=== PATIENT | female | born 1930 | race Caucasian/White ===

== ENCOUNTER 2019-03-28 20:36 | Emergency (ER) | payer MEDICARE ==
[~2019-03-28] VITALS: Ht 149.9 cm; Wt 64.5 kg
[2019-03-28 20:40] VITALS: BP 137/60
[2019-03-28] MEDS ORDERED: acetaminophen 325mg tablet PO ONE (20:45)
== END 2019-03-28 21:49 | disposition home or self-care (01) ==
LOC: ER 20:37
DX: S90.32XA Contusion of left foot, initial encounter (principal); S90.122A Contusion of left lesser toe(s) without damage to nail, initial encounter; I10 Essential (primary) hypertension; J44.9 Chronic obstructive pulmonary disease, unspecified; E03.9 Hypothyroidism, unspecified; E11.42 Type 2 diabetes mellitus with diabetic polyneuropathy; Z88.8 Allergy status to other drugs, medicaments and biological substances; W22.03XA Walked into furniture, initial encounter; Y93.89 Activity, other specified; Y92.89 Other specified places as the place of occurrence of the external cause; Y99.9 Unspecified external cause status
CPT/HCPCS: 73630; 99284

== ENCOUNTER 2021-11-03 01:07 | Inpatient (IN) | payer MEDICARE, OTHER ==
[~2021-11-03] VITALS: Ht 162.6 cm; Wt 54.5 kg
[2021-11-03] MEDS ORDERED: iohexol 300mg/ml 100ml inj. ONE (01:48)
[2021-11-03 02:23] LABS: CLARITY,URINE SLIGHTLY CLOUDY (Clear); COLOR,URINE YELLOW (Yellow); GLUCOSE, URINE NEGATIVE (Neg); KETONES,URINE NEGATIVE (Neg); LEUKOCYTE ESTERASE ,URINE NEGATIVE (Neg); NITRITES, URINE NEGATIVE (Neg); OCCULT BLOOD,URINE LARGE (Neg); PROTEIN,URINE 30 mg/dl (Neg); UROBILINOGEN,URINE 0.2 E.U/dL (0.2-1.0)
[2021-11-03 02:28] LABS: APTT 28 SECONDS (22-32)
[2021-11-03 02:29] LABS: ALANINE AMINOTRANSFERASE 12 U/L (12-78); ALBUMIN 2.3 G/DL (3.4-5.0); ALBUMIN/GLOBULIN RATIO 0.6 (1.1-1.5); ALKALINE PHOSPHATASE 81 IU/L (46-116); ANION GAP 9 (8-16); ASPARTATE AMINO TRANSFERASE 8 U/L (10-37); BILIRUBIN,DIRECT 0.1 MG/DL (0-0.3); BILIRUBIN,TOTAL 0.3 MG/DL (0.1-1.0); BLOOD UREA NITROGEN 54 MG/DL (7-18); BUN/CREATININE RATIO 27.7 (6.6-38.0); CALCIUM 9.1 MG/DL (8.5-10.1); CHLORIDE 98 MMOL/L (99-107); CREATININE 1.95 MG/DL (0.40-0.90); GLUCOSE 139 MG/DL (70-104); LIPASE 143 U/L (73-393); SODIUM 130 MMOL/L (135-145); TOTAL CARBON DIOXIDE 22.6 MMOL/L (24-32); TOTAL PROTEIN 6.4 G/DL (6.4-8.2); eGFR 24 ML/MIN
[2021-11-03 02:35] LABS: POTASSIUM 6.5 MMOL/L (3.5-5.1)
[2021-11-03 02:39] LABS: UA COLLECTION TYPE STRAIGHT CATH
[2021-11-03] MEDS ORDERED: albuterol 2.5 MG/3 ML nebule CONTNEB PRN (02:40)
[2021-11-03] MEDS ORDERED: dextrose ORAL solution 15 GM/59 ML bottle PO ONE (02:40)
[2021-11-03] MEDS ORDERED: insulin regular, human 10 units/0.1 ml syringe IV ONE ×2 (02:40→04:35)
[2021-11-03 02:41] LABS: BACTERIA,URINE FEW /HPF (Neg); SQUAMOUS EPITHELIAL CELL,UR FEW /LPF (FEW)
[2021-11-03 02:42] LABS: RBC,URINE 50-100 /HPF (0-2); WBC,URINE 0-4 /HPF (0-4)
[2021-11-03 02:44] LABS: FINE GRANULAR CAST 0-3 /LPF (NEGATIVE)
[2021-11-03] MEDS ORDERED: calcium gluconate inj. 1 GM in normal saline 100ml IV soln 100 ML IV ONE (02:45)
[2021-11-03] MEDS ORDERED: CALCIUM GLUC 1gm/50ml NACL,iso 50 ML IV ONE (02:45)
[2021-11-03] MEDS ORDERED: normal saline 1000ml 1,000 ML IV ONE (03:10)
[2021-11-03 03:14] LABS: BASOPHILS % (AUTO) 0.3 % (0-1); EOSINOPHILS % (AUTO) 0.3 % (0-6); HEMATOCRIT 29.8 % (35.0-45.0); HEMOGLOBIN 9.6 g/dl (12.0-16.0); LYMPHOCYTES # (AUTO) 0.2 X10'3 (1.1-4.8); LYMPHOCYTES % (AUTO) 2.3 % (21-51); MEAN CORPUSCULAR HEMOGLOBIN 32.1 PG (27.0-31.0); MEAN CORPUSCULAR HGB CONC 32.2 g/dL (33.0-36.5); MEAN CORPUSCULAR VOLUME 99.7 FL (78-98); MONOCYTES # (AUTO) 0.5 X10'3 (0-0.9); MONOCYTES % (AUTO) 7.1 % (2-12); NEUTROPHILS # (AUTO) 6.7 X10'3 (1.8-7.7); PLATELET COUNT 547 X10'3 (140-440); RED BLOOD COUNT 2.99 X10'6 (4.20-5.60); RED CELL DISTRIBUTION WIDTH 14.5 % (11.5-14.5); WHITE BLOOD COUNT 7.4 X10'3 (4.5-11.0)
[2021-11-03] MEDS ORDERED: HYDROcodone/acetaminophen 5mg/325mg tablet PO PRN (04:30)
[2021-11-03] MEDS ORDERED: morphine 2 MG/ML inj. syringe IV PRN (04:30)
[2021-11-03] MEDS ORDERED: bisacodyl 10mg suppository rectal RC PRN (04:30)
[2021-11-03] MEDS ORDERED: mag hydrox/Alum hydrox/simeth 30ml oral suspension PO PRN (04:30)
[2021-11-03] MEDS ORDERED: ondansetron/PF 4mg/2ml inj IV PRN (04:30)
[2021-11-03] MEDS ORDERED: HYDROmorphone inj. 0.5 MG/0.5 ML DISP.SYRIN IV PRN (04:30)
[2021-11-03] MEDS ORDERED: magnesium hydroxide 30ml (MOM) UD suspension PO PRN (04:30)
[2021-11-03] MEDS ORDERED: ondansetron 4mg rapidly disintigrating tab PO PRN (04:30)
[2021-11-03] MEDS ORDERED: acetaminophen 650mg rectal suppository RC PRN (04:30)
[2021-11-03] MEDS ORDERED: acetaminophen 325mg tablet PO PRN ×2 (04:30)
[2021-11-03] MEDS ORDERED: cefepime 1GM/NS ADD-VANTAGE 100 ML IV ONE (04:30)
[2021-11-03] MEDS ORDERED: CALCIUM GLUC 1gm/50ml NACL,iso 50 ML IV PRN (04:35)
[2021-11-03] MEDS ORDERED: dextrose ORAL solution 15 GM/59 ML bottle PO PRN ×2 (04:35)
[2021-11-03] MEDS ORDERED: sodium polystyrene sulfonate 15gm/60ml oral suspension PO ONE (04:35)
[2021-11-03] MEDS ORDERED: dextrose 50%-water 50ml dispensing syringe IV ONE ×2 (04:35→05:00)
[2021-11-03] MEDS ORDERED: glucagon, human recombinant 1mg kit SUBCUT PRN (04:35)
[2021-11-03] MEDS ORDERED: MESSAGE TO PHARMACY PO ONE (04:35)
[2021-11-03] MEDS ORDERED: dextrose 50%-water 50ml dispensing syringe IV PRN ×2 (04:35)
[2021-11-03] MEDS ORDERED: insulin Lispro (HumaLOG) vial - multi-dose SQ SCH (04:35)
[2021-11-03] MEDS ORDERED: sodium bicarbonate (8.4%) 1 mEq/ml syringe IV ONE (04:35)
[2021-11-03] MEDS ORDERED: vancomycin/NS 1 GM ADD-VANTAGE 250 ML IV ONE (04:45)
[2021-11-03 05:00] LABS: HEMOGLOBIN A1C 5.7 % (4.5-6.2)
[2021-11-03 05:08] LABS: MAGNESIUM 2.2 MG/DL (1.5-2.4); PHOSPHORUS 3.5 MG/DL (2.3-4.5)
[2021-11-03] MEDS ORDERED: sodium bicarbonate (8.4%) inj. 1 MEQ/ML ML IV ONE (05:15)
--- NOTE | 2021-11-03 05:40 | NUR ---
RT AT BEDSIDE, CONTINUOUS NEB IN PLACE
[2021-11-03] MEDS ORDERED: GABA600T13 PO ×2 (06:53)
[2021-11-03] MEDS ORDERED: POTA-82 PO (06:53)
[2021-11-03] MEDS ORDERED: ASPI81TA52 PO (06:56)
[2021-11-03] MEDS ORDERED: MELO-102 PO (06:56)
[2021-11-03] MEDS ORDERED: THYR90TA12 PO (06:56)
[2021-11-03] MEDS ORDERED: LOSA25TA41 PO (06:56)
[2021-11-03] MEDS ORDERED: ATOR20TA66 PO (06:56)
[2021-11-03] MEDS ORDERED: METF-438 PO (06:56)
[2021-11-03] MEDS ORDERED: FURO20TA4 PO (06:56)
[2021-11-03] MEDS ORDERED: DONE10TA44 PO (07:01)
--- NOTE | 2021-11-03 07:06 | NUR ---
completed medication reconcilliation with external med rec as well as list provided by caregiver. faxed copy to pharmacy
[2021-11-03] MEDS: pantoprazole 40mg Tablet.DR PO SCH (07:30)
[2021-11-03] MEDS: normal saline 1000ml 1,000 ML IV SCH (07:58)
[2021-11-03] MEDS: piperacillin/tazo 3.375gm/50ml 50 ML IV SCH ×2 (07:58→20:31)
[2021-11-03] MEDS: docusate sod 100mg capsule PO SCH ×2 (08:00→20:00)
--- NOTE | 2021-11-03 13:19 | NUR ---
REPOSITIONED PT UP IN BED, BRIEF CHANGE COMPLETED WITH NAHUM CARE, NO BM AT THIS TIME FOR PENDING CDIFF SAMPLE. HOSPITALIST NATHALIA PRESENT EVALUATING PT. RECEIVED VERBAL ORDER FOR CBC, CMP, AND MG LAB REDRAW NOW. ORDER PLACED RECIVED. PT IS AOX1-TO PERSON.CARGIVER AT BEDSIDE
[2021-11-03 13:37] LABS: BASOPHILS % (AUTO) 0 % (0-1); EOSINOPHILS % (AUTO) 0.1 % (0-6); HEMATOCRIT 23.8 % (35.0-45.0); HEMOGLOBIN 7.7 g/dl (12.0-16.0); LYMPHOCYTES # (AUTO) 0.2 X10'3 (1.1-4.8); LYMPHOCYTES % (AUTO) 2.3 % (21-51); MEAN CORPUSCULAR HEMOGLOBIN 32.2 PG (27.0-31.0); MEAN CORPUSCULAR HGB CONC 32.5 g/dL (33.0-36.5); MEAN CORPUSCULAR VOLUME 99.2 FL (78-98); MEAN PLATELET VOLUME 6.5 FL (7.4-10.4); MONOCYTES # (AUTO) 0.5 X10'3 (0-0.9); MONOCYTES % (AUTO) 6.4 % (2-12); NEUTROPHILS # (AUTO) 7.5 X10'3 (1.8-7.7); NEUTROPHILS % (AUTO) 91.2 % (42-75); PLATELET COUNT 486 X10'3 (140-440); RED CELL DISTRIBUTION WIDTH 14.2 % (11.5-14.5); WHITE BLOOD COUNT 8.3 X10'3 (4.5-11.0)
[2021-11-03 13:51] LABS: ALANINE AMINOTRANSFERASE 11 U/L (12-78); ALBUMIN 1.7 G/DL (3.4-5.0); ALBUMIN/GLOBULIN RATIO 0.5 (1.1-1.5); ALKALINE PHOSPHATASE 64 IU/L (46-116); ANION GAP 10 (8-16); ASPARTATE AMINO TRANSFERASE 16 U/L (10-37); BILIRUBIN,TOTAL 0.2 MG/DL (0.1-1.0); BLOOD UREA NITROGEN 51 MG/DL (7-18); BUN/CREATININE RATIO 24.8 (6.6-38.0); CALCIUM 8.7 MG/DL (8.5-10.1); CHLORIDE 105 MMOL/L (99-107); CREATININE 2.06 MG/DL (0.40-0.90); GLUCOSE 162 MG/DL (70-104); MAGNESIUM 2.3 MG/DL (1.5-2.4); SODIUM 135 MMOL/L (135-145); TOTAL CARBON DIOXIDE 19.8 MMOL/L (24-32); TOTAL PROTEIN 5.4 G/DL (6.4-8.2); eGFR 23 ML/MIN
[2021-11-03 13:55] LABS: POTASSIUM 6.1 MMOL/L (3.5-5.1)
[2021-11-03] MEDS ORDERED: sodium polystyrene sulfonate 15gm/60ml oral suspension PR ONE (14:10)
--- NOTE | 2021-11-03 18:07 | NUR ---
pt found to have pulled out iv. new iv placed and pt repositioned for comfort
[2021-11-03] MEDS: lactobacillus rhamnosus 10,000 MMU CELLS/CAPSULE PO SCH (20:00)
[2021-11-03] MEDS: MELOXICAM 15 MG PO SCH (21:00)
[2021-11-03] MEDS ORDERED: atorvastatin 20mg tablet PO SCH (21:00)
[2021-11-03] MEDS ORDERED: gabapentin 400mg capsule PO SCH (21:00)
[2021-11-03] MEDS: donepezil 5mg tablet PO SCH (21:00)
[2021-11-03] MEDS ORDERED: temazepam 15mg capsule PO PRN (21:00)
[2021-11-04 00:05] LABS: OCCULT BLOOD STOOL POSITIVE (Neg)
[2021-11-04] MEDS: normal saline 1000ml 1,000 ML IV SCH ×2 (02:37→14:45)
[2021-11-04 06:00] VITALS: BP 142/68
[2021-11-04 06:09] LABS: BASOPHILS % (AUTO) 0.2 % (0-1); EOSINOPHILS % (AUTO) 0.6 % (0-6); HEMATOCRIT 24.5 % (35.0-45.0); HEMOGLOBIN 8.1 g/dl (12.0-16.0); LYMPHOCYTES # (AUTO) 0.2 X10'3 (1.1-4.8); LYMPHOCYTES % (AUTO) 2.9 % (21-51); MEAN CORPUSCULAR HEMOGLOBIN 32.6 PG (27.0-31.0); MEAN CORPUSCULAR HGB CONC 33.2 g/dL (33.0-36.5); MEAN CORPUSCULAR VOLUME 98.3 FL (78-98); MEAN PLATELET VOLUME 6.3 FL (7.4-10.4); MONOCYTES # (AUTO) 0.5 X10'3 (0-0.9); NEUTROPHILS % (AUTO) 88.3 % (42-75); PLATELET COUNT 466 X10'3 (140-440); RED BLOOD COUNT 2.49 X10'6 (4.20-5.60); RED CELL DISTRIBUTION WIDTH 14.2 % (11.5-14.5); WHITE BLOOD COUNT 6.8 X10'3 (4.5-11.0)
[2021-11-04 06:29] LABS: ALANINE AMINOTRANSFERASE 7 U/L (12-78); ALBUMIN 1.7 G/DL (3.4-5.0); ALBUMIN/GLOBULIN RATIO 0.5 (1.1-1.5); ALKALINE PHOSPHATASE 71 IU/L (46-116); ANION GAP 10 (8-16); ASPARTATE AMINO TRANSFERASE 9 U/L (10-37); BILIRUBIN,TOTAL 0.2 MG/DL (0.1-1.0); BLOOD UREA NITROGEN 44 MG/DL (7-18); BUN/CREATININE RATIO 25.1 (6.6-38.0); CALCIUM 8.5 MG/DL (8.5-10.1); CHLORIDE 108 MMOL/L (99-107); CHOL/HDL RATIO 1.3 (0.00-4.99); CHOLESTEROL 84 MG/DL (0-200); CREATININE 1.75 MG/DL (0.40-0.90); GLUCOSE 117 MG/DL (70-104); HDL CHOLESTEROL 65 MG/DL (35-60); LDL CHOLESTEROL 11 MG/DL (50-100); POTASSIUM 5.6 MMOL/L (3.5-5.1); SODIUM 139 MMOL/L (135-145); TOTAL CARBON DIOXIDE 21.3 MMOL/L (24-32); TOTAL PROTEIN 5.4 G/DL (6.4-8.2); TRIGLYCERIDES 36 MG/DL (20-135); eGFR 27 ML/MIN
--- NOTE | 2021-11-04 06:43 | NUR ---
Patient in room MED 316A. I have received report from BOBBY Stevenson and had the opportunity to ask questions and assume patient care.
[2021-11-04 07:59] LABS: C DIFF SPECIMEN=DIARRHEA? ACCEPTABLE; C DIFFICILE TOXINS A&B NEGATIVE (Neg)
[2021-11-04] MEDS ORDERED: losartan 25mg tablet PO SCH (08:00)
[2021-11-04] MEDS: docusate sod 100mg capsule PO SCH ×2 (08:00→20:00)
[2021-11-04] MEDS ORDERED: gabapentin 300mg capsule PO SCH (08:00)
[2021-11-04] MEDS ORDERED: furosemide 20MG tablet PO SCH (08:00)
[2021-11-04] MEDS ORDERED: sodium polystyrene sulfonate 15gm/60ml oral suspension PO ONE (09:45)
[2021-11-04] MEDS: piperacillin/tazo 3.375gm/50ml 50 ML IV SCH ×2 (10:17→20:23)
[2021-11-04] MEDS: lactobacillus rhamnosus 10,000 MMU CELLS/CAPSULE PO SCH ×2 (10:20→20:24)
[2021-11-04] MEDS: aspirin 81mg, enteric-coated 1 TAB TABLET.DR PO SCH (10:21)
[2021-11-04] MEDS: potassium Cl 20 mEq SR tablet PO SCH (10:22)
[2021-11-04] MEDS: pantoprazole 40mg Tablet.DR PO SCH (10:22)
[2021-11-04 11:00] VITALS: BP 87/49
--- NOTE | 2021-11-04 11:42 | NUR ---
Malnutrition consult: Pt admitted w/ metabolic encephalopathy r/t UTI, colitis, abnormal right kidneys, cystic versus abscess, and KM with CKD per EMR. Pt confused and unable to provide reliable hx. Current wt 54kg though not scaled, only scaled wt hx from 2014 shows 76kg. Appears WD/WN per MD note, only w/ trace edema per physical assessment. Pending PO. At this time pt does not meet minimum criteria for malnutrition. Will continue to monitor. Addendum: 11/04/21 at [address] Amended: Links added.
[2021-11-04 15:00] VITALS: BP 101/53
[2021-11-04 18:00] VITALS: BP 151/91
--- NOTE | 2021-11-04 18:36 | NUR ---
Problems reprioritized. Patient report given, questions answered & plan of care reviewed with BOBBY GONCALVES.
[2021-11-04] MEDS: donepezil 5mg tablet PO SCH (20:24)
[2021-11-04] MEDS: morphine 2 MG/ML inj. syringe IV PRN (20:24)
[2021-11-04] MEDS: MELOXICAM 15 MG PO SCH (21:00)
[2021-11-04 22:00] VITALS: BP 160/87
[2021-11-05] VITALS (11 sets, daily range): BP systolic 127–164; BP diastolic 61–85
[2021-11-05] MEDS: normal saline 1000ml 1,000 ML IV SCH ×3 (00:45→21:46)
[2021-11-05] MEDS: morphine 2 MG/ML inj. syringe IV PRN (02:39)
--- NOTE | 2021-11-05 07:18 | NUR ---
Patient in room MED 316. I have received report from BOBBY GONCALVES, and had the opportunity to ask questions and assume patient care.
[2021-11-05 07:23] LABS: BASOPHILS % (AUTO) 0.2 % (0-1); EOSINOPHILS # (AUTO) 0.1 X10'3 (0-0.9); EOSINOPHILS % (AUTO) 1.5 % (0-6); HEMOGLOBIN 7.3 g/dl (12.0-16.0); LYMPHOCYTES # (AUTO) 0.2 X10'3 (1.1-4.8); LYMPHOCYTES % (AUTO) 3.5 % (21-51); MEAN CORPUSCULAR HEMOGLOBIN 32.5 PG (27.0-31.0); MEAN CORPUSCULAR HGB CONC 33.2 g/dL (33.0-36.5); MEAN PLATELET VOLUME 6.3 FL (7.4-10.4); MONOCYTES # (AUTO) 0.6 X10'3 (0-0.9); MONOCYTES % (AUTO) 9.3 % (2-12); NEUTROPHILS # (AUTO) 5.8 X10'3 (1.8-7.7); NEUTROPHILS % (AUTO) 85.5 % (42-75); PLATELET COUNT 427 X10'3 (140-440); RED BLOOD COUNT 2.24 X10'6 (4.20-5.60); RED CELL DISTRIBUTION WIDTH 14.5 % (11.5-14.5); WHITE BLOOD COUNT 6.8 X10'3 (4.5-11.0)
--- NOTE | 2021-11-05 07:39 | NUR ---
Colby consult: Noted colby score 12 though no skin issues documented. Addendum: 11/05/21 at [address] Amended: Links added.
[2021-11-05 07:45] LABS: ALANINE AMINOTRANSFERASE 7 U/L (12-78); ALBUMIN 1.5 G/DL (3.4-5.0); ALBUMIN/GLOBULIN RATIO 0.4 (1.1-1.5); ALKALINE PHOSPHATASE 71 IU/L (46-116); ANION GAP 13 (8-16); ASPARTATE AMINO TRANSFERASE 16 U/L (10-37); BILIRUBIN,TOTAL 0.2 MG/DL (0.1-1.0); BLOOD UREA NITROGEN 36 MG/DL (7-18); BUN/CREATININE RATIO 19.9 (6.6-38.0); CALCIUM 8.1 MG/DL (8.5-10.1); CHLORIDE 108 MMOL/L (99-107); CREATININE 1.81 MG/DL (0.40-0.90); GLUCOSE 98 MG/DL (70-104); SODIUM 141 MMOL/L (135-145); TOTAL PROTEIN 5.1 G/DL (6.4-8.2); eGFR 26 ML/MIN
[2021-11-05] MEDS: docusate sod 100mg capsule PO SCH (08:00)
[2021-11-05] MEDS: potassium Cl 20 mEq SR tablet PO SCH (08:00)
[2021-11-05] MEDS: lactobacillus rhamnosus 10,000 MMU CELLS/CAPSULE PO SCH ×2 (08:00→19:38)
[2021-11-05] MEDS ORDERED: thyroid, pork 30mg tablet PO SCH (08:00)
--- NOTE | 2021-11-05 08:02 | NUR ---
PAGE SENT PAGER ID: [phone] MESSAGE: [phone] MADHAVI STEVE, CRITICAL LAB - HCT 7.3, HER HGB IS 7.3. THANK YOU, [facility] [id number]
[2021-11-05] MEDS: piperacillin/tazo 3.375gm/50ml 50 ML IV SCH ×2 (09:04→19:52)
[2021-11-05] MEDS: aspirin 81mg, enteric-coated 1 TAB TABLET.DR PO SCH (09:06)
--- NOTE | 2021-11-05 13:55 | NUR ---
Zackary patel, notified
--- NOTE | 2021-11-05 15:40 | NUR ---
Patient in room U 3009. I have received report from Malou and had the opportunity to ask questions and assume patient care. Addendum: 11/05/21 at 1847 by Shalonda Buckley RN Patient received on the unit at 1720 with no s/s pain or distress noted. Skin inspected with no open area or area of skin concern. Plan of care will continue.
--- NOTE | 2021-11-05 15:50 | NUR ---
PRESSURE ULCER EDUCATION: DEFINITION: A pressure ulcer is an area of skin that breaks down when you stay in one position too long. The constant pressure against the skin reduces the blood flow to that area and the affected tissue dies. CAUSES: "Being bedridden or in a wheelchair "Fragile skin "Having a chronic condition, such as diabetes or vascular disease "Inability to move certain parts of your body without assistance "Older age "Incontinence of urine or stool SYMPTOMS: "A reddened area that DOES NOT turn white when pressed on - this can be the beginning of a pressure ulcer "A blister, deep sore or a crater - these can be advanced pressure ulcers FIRST AID: "Relieve the pressure on this area "Keep the area clean and dry "Call your primary doctor if you see any of the above symptoms "DO NOT massage the area "DO NOT use a donut shaped or ring shaped pillow- these actually interfere with the blood flow and cause complications PREVENTION: "Check for pressure ulcers everyday "Change position at least every two hours to relieve pressure "Use items that help relieve pressure- pillows, sheepskin, foam padding, and powders. "Keep skin clean and dry "Eat healthy well balanced meals "Exercise daily IF YOU SEE ANY OF THESE SYMPTOMS WHILE IN THE HOSPITAL - TELL YOUR NURSE IMMEDIATELY. IF YOU SEE ANY OF THESE SYMPTOMS WHILE AT HOME OR HAVE ANY QUESTIONS OR CONCERNS ABOUT PRESSURE ULCERS - CALL YOUR PRIMARY DOCTOR IMMEDIATELY. Addendum: 11/05/21 at 1550 by Larissa Burch RN Amended: Links added.
--- NOTE | 2021-11-05 18:47 | NUR ---
Problems reprioritized. Patient report given, questions answered & plan of care reviewed with
--- NOTE | 2021-11-05 18:52 | NUR ---
Problems reprioritized. Patient report given, questions answered & plan of care reviewed with
[2021-11-05 19:56] LABS: HEMATOCRIT 28.5 % (35.0-45.0); HEMOGLOBIN 9.7 g/dl (12.0-16.0); MEAN CORPUSCULAR HEMOGLOBIN 32.4 PG (27.0-31.0); MEAN CORPUSCULAR HGB CONC 33.9 g/dL (33.0-36.5); MEAN CORPUSCULAR VOLUME 95.6 FL (78-98); MEAN PLATELET VOLUME 6.1 FL (7.4-10.4); PLATELET COUNT 450 X10'3 (140-440); RED BLOOD COUNT 2.98 X10'6 (4.20-5.60); RED CELL DISTRIBUTION WIDTH 15.2 % (11.5-14.5); WHITE BLOOD COUNT 7.3 X10'3 (4.5-11.0)
[2021-11-05] MEDS: MELOXICAM 15 MG PO SCH (20:06)
[2021-11-05] MEDS: donepezil 5mg tablet PO SCH (20:06)
[2021-11-05] MEDS ORDERED: gabapentin 300mg capsule PO SCH ×2 (21:00)
[2021-11-06 06:56] LABS: BASOPHILS % (AUTO) 0.4 % (0-1); EOSINOPHILS # (AUTO) 0.1 X10'3 (0-0.9); EOSINOPHILS % (AUTO) 1.9 % (0-6); HEMATOCRIT 25.7 % (35.0-45.0); HEMOGLOBIN 8.4 g/dl (12.0-16.0); LYMPHOCYTES # (AUTO) 0.2 X10'3 (1.1-4.8); LYMPHOCYTES % (AUTO) 4.6 % (21-51); MEAN CORPUSCULAR HEMOGLOBIN 31.7 PG (27.0-31.0); MEAN CORPUSCULAR HGB CONC 32.8 g/dL (33.0-36.5); MEAN CORPUSCULAR VOLUME 96.6 FL (78-98); MEAN PLATELET VOLUME 6.4 FL (7.4-10.4); MONOCYTES # (AUTO) 0.5 X10'3 (0-0.9); MONOCYTES % (AUTO) 10.2 % (2-12); NEUTROPHILS # (AUTO) 4.4 X10'3 (1.8-7.7); NEUTROPHILS % (AUTO) 82.9 % (42-75); PLATELET COUNT 374 X10'3 (140-440); RED BLOOD COUNT 2.66 X10'6 (4.20-5.60); RED CELL DISTRIBUTION WIDTH 15.4 % (11.5-14.5); WHITE BLOOD COUNT 5.3 X10'3 (4.5-11.0)
[2021-11-06 07:00] VITALS: BP 125/56
--- NOTE | 2021-11-06 07:00 | NUR ---
Patient in room PCU 3009. I have received report from Gale and had the opportunity to ask questions and assume patient care.
[2021-11-06 07:21] LABS: ALANINE AMINOTRANSFERASE 10 U/L (12-78); ALBUMIN 1.5 G/DL (3.4-5.0); ALBUMIN/GLOBULIN RATIO 0.5 (1.1-1.5); ALKALINE PHOSPHATASE 65 IU/L (46-116); ANION GAP 12 (8-16); ASPARTATE AMINO TRANSFERASE 9 U/L (10-37); BILIRUBIN,TOTAL 0.3 MG/DL (0.1-1.0); BLOOD UREA NITROGEN 35 MG/DL (7-18); BUN/CREATININE RATIO 18.7 (6.6-38.0); CALCIUM 8.2 MG/DL (8.5-10.1); CHLORIDE 107 MMOL/L (99-107); CREATININE 1.87 MG/DL (0.40-0.90); GLUCOSE 85 MG/DL (70-104); POTASSIUM 3.1 MMOL/L (3.5-5.1); SODIUM 139 MMOL/L (135-145); TOTAL CARBON DIOXIDE 20.2 MMOL/L (24-32); TOTAL PROTEIN 4.8 G/DL (6.4-8.2); eGFR 25 ML/MIN
[2021-11-06] MEDS: piperacillin/tazo 3.375gm/50ml 50 ML IV SCH ×2 (07:51→20:32)
[2021-11-06] MEDS: aspirin 81mg, enteric-coated 1 TAB TABLET.DR PO SCH (07:52)
[2021-11-06] MEDS: lactobacillus rhamnosus 10,000 MMU CELLS/CAPSULE PO SCH ×2 (07:52→20:32)
[2021-11-06] MEDS: potassium Cl 20 mEq SR tablet PO SCH ×2 (07:52→17:20)
[2021-11-06] MEDS: normal saline 1000ml 1,000 ML IV SCH ×2 (07:53→16:45)
[2021-11-06 11:00] VITALS: BP 130/53
[2021-11-06 15:00] VITALS: BP 137/67
[2021-11-06] MEDS ORDERED: magnesium 2GM in 50ml NS 50 ML IV PRN (17:00)
[2021-11-06] MEDS ORDERED: magnesium Cl slow-release 64mg tablet PO PRN (17:00)
[2021-11-06] MEDS ORDERED: magnesium 4gm in 100ml NS 100 ML IV PRN (17:00)
[2021-11-06] MEDS ORDERED: potassium Cl 20 mEq SR tablet PO PRN ×2 (17:00)
[2021-11-06] MEDS ORDERED: potassium CL 10mEq/100ml bag 100 ML IV PRN (17:00)
--- NOTE | 2021-11-06 17:42 | NUR ---
PAGER ID: [phone] MESSAGE: [id number] STEVE. THE FAMILY IS HERE AND HAS DECIDED ON COMFORT CARE. CAN YOU COME OVER AND TALK TO THEM? BERT ONEIL
[2021-11-06 17:54] LABS: MAGNESIUM 1.7 MG/DL (1.5-2.4); POTASSIUM 3.3 MMOL/L (3.5-5.1)
[2021-11-06 18:00] VITALS: BP 137/62
[2021-11-06] MEDS ORDERED: morphine 10mg/ml inj. IV PRN (18:00)
[2021-11-06] MEDS ORDERED: acetaminophen 325mg tablet PO PRN (18:00)
[2021-11-06] MEDS ORDERED: morphine 10mg/0.5ml (conc. morphine) oral syringe PO PRN (18:00)
--- NOTE | 2021-11-06 18:34 | NUR ---
Problems reprioritized. Patient report given, questions answered & plan of care reviewed with
[2021-11-06] MEDS: docusate sod 100mg capsule PO SCH (20:00)
[2021-11-06] MEDS: sennosides/docusate sodium tablet PO SCH (20:00)
[2021-11-06] MEDS: donepezil 5mg tablet PO SCH (20:32)
[2021-11-06] MEDS: K and/or MAG REPLACEMENT MC SCH (20:34)
[2021-11-06] MEDS: MELOXICAM 15 MG PO SCH (20:34)
[2021-11-06] MEDS ORDERED: gabapentin 300mg capsule PO SCH (21:00)
[2021-11-06 23:00] VITALS: BP 122/62
[2021-11-07] MEDS: normal saline 1000ml 1,000 ML IV SCH ×3 (03:58→19:18)
--- NOTE | 2021-11-07 06:14 | NUR ---
Patient in room PCU 3009. I have received report from Gale and had the opportunity to ask questions and assume patient care.
[2021-11-07 07:00] VITALS: BP 125/56
[2021-11-07 08:00] VITALS: BP 125/56
[2021-11-07] MEDS: docusate sod 100mg capsule PO SCH ×2 (08:00→19:17)
[2021-11-07] MEDS: sennosides/docusate sodium tablet PO SCH ×2 (08:00→19:17)
[2021-11-07] MEDS: K and/or MAG REPLACEMENT MC SCH (08:00)
--- NOTE | 2021-11-07 08:44 | NUR ---
Noted pt has been made DNR with comfort care. [facility] 11/05. Will continue to follow per LOS. Recommendations: 1) Bowel care per comfort care measures Addendum: 11/07/21 at [address] Amended: Links added.
[2021-11-07 09:01] LABS: BASOPHILS % (AUTO) 0.4 % (0-1); EOSINOPHILS # (AUTO) 0.2 X10'3 (0-0.9); EOSINOPHILS % (AUTO) 3.2 % (0-6); HEMATOCRIT 26.5 % (35.0-45.0); HEMOGLOBIN 8.6 g/dl (12.0-16.0); LYMPHOCYTES # (AUTO) 0.3 X10'3 (1.1-4.8); LYMPHOCYTES % (AUTO) 6.1 % (21-51); MEAN CORPUSCULAR HEMOGLOBIN 31.4 PG (27.0-31.0); MEAN CORPUSCULAR HGB CONC 32.6 g/dL (33.0-36.5); MEAN CORPUSCULAR VOLUME 96.5 FL (78-98); MEAN PLATELET VOLUME 6.3 FL (7.4-10.4); MONOCYTES # (AUTO) 0.6 X10'3 (0-0.9); MONOCYTES % (AUTO) 11.4 % (2-12); NEUTROPHILS # (AUTO) 4.4 X10'3 (1.8-7.7); NEUTROPHILS % (AUTO) 78.9 % (42-75); PLATELET COUNT 392 X10'3 (140-440); RED BLOOD COUNT 2.74 X10'6 (4.20-5.60); RED CELL DISTRIBUTION WIDTH 15.6 % (11.5-14.5); WHITE BLOOD COUNT 5.6 X10'3 (4.5-11.0)
[2021-11-07] MEDS: aspirin 81mg, enteric-coated 1 TAB TABLET.DR PO SCH (09:12)
[2021-11-07] MEDS: piperacillin/tazo 3.375gm/50ml 50 ML IV SCH ×2 (09:12→19:13)
[2021-11-07] MEDS: lactobacillus rhamnosus 10,000 MMU CELLS/CAPSULE PO SCH ×2 (09:12→19:13)
[2021-11-07 09:14] LABS: ALANINE AMINOTRANSFERASE 9 U/L (12-78); ALBUMIN 1.6 G/DL (3.4-5.0); ALBUMIN/GLOBULIN RATIO 0.4 (1.1-1.5); ALKALINE PHOSPHATASE 60 IU/L (46-116); ANION GAP 11 (8-16); ASPARTATE AMINO TRANSFERASE 13 U/L (10-37); BILIRUBIN,TOTAL 0.2 MG/DL (0.1-1.0); BLOOD UREA NITROGEN 30 MG/DL (7-18); BUN/CREATININE RATIO 16.9 (6.6-38.0); CALCIUM 7.6 MG/DL (8.5-10.1); CHLORIDE 112 MMOL/L (99-107); CREATININE 1.77 MG/DL (0.40-0.90); GLUCOSE 83 MG/DL (70-104); MAGNESIUM 1.7 MG/DL (1.5-2.4); POTASSIUM 3.3 MMOL/L (3.5-5.1); SODIUM 142 MMOL/L (135-145); TOTAL CARBON DIOXIDE 19.3 MMOL/L (24-32); TOTAL PROTEIN 5.3 G/DL (6.4-8.2); eGFR 27 ML/MIN
[2021-11-07 18:00] VITALS: BP 153/62
--- NOTE | 2021-11-07 18:30 | NUR ---
Problems reprioritized. Patient report given, questions answered & plan of care reviewed with
[2021-11-07] MEDS: MELOXICAM 15 MG PO SCH (19:18)
--- NOTE | 2021-11-08 06:48 | NUR ---
Patient in room PCU 3009. I have received report from Gale ROSALES and had the opportunity to ask questions and assume patient care.
[2021-11-08 07:00] VITALS: BP 159/74
[2021-11-08 07:23] LABS: BASOPHILS % (AUTO) 0.3 % (0-1); EOSINOPHILS # (AUTO) 0.2 X10'3 (0-0.9); EOSINOPHILS % (AUTO) 2.5 % (0-6); HEMATOCRIT 26.8 % (35.0-45.0); HEMOGLOBIN 8.9 g/dl (12.0-16.0); LYMPHOCYTES # (AUTO) 0.3 X10'3 (1.1-4.8); LYMPHOCYTES % (AUTO) 4.9 % (21-51); MEAN CORPUSCULAR HEMOGLOBIN 31.9 PG (27.0-31.0); MEAN CORPUSCULAR HGB CONC 33.3 g/dL (33.0-36.5); MEAN CORPUSCULAR VOLUME 95.9 FL (78-98); MEAN PLATELET VOLUME 5.9 FL (7.4-10.4); MONOCYTES # (AUTO) 0.7 X10'3 (0-0.9); MONOCYTES % (AUTO) 9.9 % (2-12); NEUTROPHILS # (AUTO) 5.8 X10'3 (1.8-7.7); NEUTROPHILS % (AUTO) 82.4 % (42-75); PLATELET COUNT 385 X10'3 (140-440); RED BLOOD COUNT 2.79 X10'6 (4.20-5.60)
[2021-11-08 07:32] LABS: ALANINE AMINOTRANSFERASE 9 U/L (12-78); ALBUMIN 1.8 G/DL (3.4-5.0); ALBUMIN/GLOBULIN RATIO 0.5 (1.1-1.5); ALKALINE PHOSPHATASE 60 IU/L (46-116); ANION GAP 9 (8-16); ASPARTATE AMINO TRANSFERASE 11 U/L (10-37); BILIRUBIN,TOTAL 0.2 MG/DL (0.1-1.0); BLOOD UREA NITROGEN 26 MG/DL (7-18); CHLORIDE 108 MMOL/L (99-107); CREATININE 1.62 MG/DL (0.40-0.90); GLUCOSE 96 MG/DL (70-104); POTASSIUM 3.4 MMOL/L (3.5-5.1); SODIUM 137 MMOL/L (135-145); TOTAL CARBON DIOXIDE 20.1 MMOL/L (24-32); TOTAL PROTEIN 5.2 G/DL (6.4-8.2); eGFR 30 ML/MIN
[2021-11-08] MEDS: lactobacillus rhamnosus 10,000 MMU CELLS/CAPSULE PO SCH ×2 (08:29→20:51)
[2021-11-08] MEDS: docusate sod 100mg capsule PO SCH (08:29)
[2021-11-08] MEDS: potassium Cl 20 mEq SR tablet PO SCH (08:29)
[2021-11-08] MEDS: piperacillin/tazo 3.375gm/50ml 50 ML IV SCH (08:29)
[2021-11-08] MEDS: sennosides/docusate sodium tablet PO SCH (08:29)
[2021-11-08] MEDS: aspirin 81mg, enteric-coated 1 TAB TABLET.DR PO SCH (08:30)
[2021-11-08] MEDS: HYDROcodone/acetaminophen 10/325mg tab PO PRN (10:30)
--- NOTE | 2021-11-08 11:03 | NUR ---
Patient up and talking. C/O pain but appears to have more energy and able to feed self. Dr. Calero is aware of K 3.4 and OK to not replace at this time. Daughter Tract will be contacted.
[2021-11-08] MEDS: ciprofloxacin lact 400MG/200ML 200 ML IV SCH ×2 (11:46→20:51)
[2021-11-08] MEDS: normal saline 1000ml 1,000 ML IV SCH ×2 (11:47→23:41)
[2021-11-08] MEDS: metroNIDAZOLE-Flagyl 500mg/NS 100 ML IV SCH ×2 (15:42→20:51)
[2021-11-08] MEDS: LORazepam 2 mg/ml vial IV PRN ×2 (16:04→23:33)
[2021-11-08 18:00] VITALS: BP 160/72
--- NOTE | 2021-11-08 19:25 | NUR ---
Problems reprioritized. Patient report given, questions answered & plan of care reviewed with Lisbeth ROSALES.
[2021-11-09 06:00] VITALS: BP 118/72
[2021-11-09 08:00] VITALS: BP 118/72
[2021-11-09] MEDS: metroNIDAZOLE-Flagyl 500mg/NS 100 ML IV SCH (08:08)
[2021-11-09] MEDS: potassium Cl 20 mEq SR tablet PO SCH (08:08)
[2021-11-09] MEDS: lactobacillus rhamnosus 10,000 MMU CELLS/CAPSULE PO SCH (08:08)
[2021-11-09] MEDS: ciprofloxacin lact 400MG/200ML 200 ML IV SCH (08:09)
[2021-11-09] MEDS: HYDROcodone/acetaminophen 10/325mg tab PO PRN (09:28)
--- NOTE | 2021-11-09 18:48 | NUR ---
Problems reprioritized. Patient report given, questions answered & plan of care reviewed with JAY Beasley.
[2021-11-09] MEDS: morphine 2 MG/ML inj. syringe IV PRN (20:30)
[2021-11-09 23:00] VITALS: BP 146/78
[2021-11-10] MEDS: morphine 2 MG/ML inj. syringe IV PRN ×2 (00:46→11:15)
[2021-11-10 08:41] VITALS: BP 161/85
--- NOTE | 2021-11-10 11:47 | NUR ---
Patient in room PCU 3009. I have received report from BOBBY Beasley and had the opportunity to ask questions and assume patient care. Patient awake in bed and in no acute distress.
[2021-11-10] MEDS: LORazepam 2 mg/ml vial IV PRN ×2 (14:04→19:50)
[2021-11-10] MEDS ORDERED: LORazepam 0.5 MG tablet PO PRN (15:15)
--- NOTE | 2021-11-10 18:13 | NUR ---
Problems reprioritized. Patient report given, questions answered & plan of care reviewed with BOBBY Carlisle. Patient stable at transfer of care.
--- NOTE | 2021-11-10 18:19 | NUR ---
Patient in room PCU 3009. I have received report from Thelma ROSALES and had the opportunity to ask questions and assume patient care.
[2021-11-11] MEDS: morphine 2 MG/ML inj. syringe IV PRN (02:51)
[2021-11-11] MEDS: LORazepam 2 mg/ml vial IV PRN (05:32)
[2021-11-11 06:00] VITALS: BP 138/72
--- NOTE | 2021-11-11 06:23 | NUR ---
Problems reprioritized. Patient report given, questions answered & plan of care reviewed with Thelma ROSALES.
--- NOTE | 2021-11-11 07:25 | NUR ---
Patient in room U 3009. I have received report from BOBBY Carlisle and had the opportunity to ask questions and assume patient care. Patient asleep in room and in no acute distress.
[2021-11-11 08:00] VITALS: BP 138/72
--- NOTE | 2021-11-11 15:45 | NUR ---
patient stable for transfer per MD orders. All belongings collected and sent with the patient. discharge instructions given to patient and family made aware of transfer. Report called to VELASQUEZ Guaman at [facility] and they are awaiting patient's arrival. PIV kept in per facility's request. Patient picked up by [facility] and left via gurney.
== END 2021-11-11 15:45 | DRG 682 ==
LOC: ER 01:08 → ED HOLD 04:31 → EDBEDREQ 20:51 → MED 3N 21:29 → PCU 3S 11-05 17:47
PROVIDERS: ADMIT Family Medicine; ATTEND Family Medicine
PROC: 30233N1 Transfusion of Nonautologous Red Blood Cells into Peripheral Vein, Percutaneous Approach (ICD-10-PCS; principal; 2021-11-05)
DX: N17.9 Acute kidney failure, unspecified (principal); G93.41 Metabolic encephalopathy; E43 Unspecified severe protein-calorie malnutrition; I31.3 Pericardial effusion (noninflammatory); J90 Pleural effusion, not elsewhere classified; N39.0 Urinary tract infection, site not specified; N15.1 Renal and perinephric abscess; Z66 Do not resuscitate; K52.9 Noninfective gastroenteritis and colitis, unspecified; C67.9 Malignant neoplasm of bladder, unspecified; N18.9 Chronic kidney disease, unspecified; D53.9 Nutritional anemia, unspecified; G30.9 Alzheimer's disease, unspecified; F02.80 Dementia in other diseases classified elsewhere, unspecified severity, without behavioral disturbance, psychotic disturbance, mood disturbance, and anxiety; N28.1 Cyst of kidney, acquired; R09.02 Hypoxemia; Z20.822 Contact with and (suspected) exposure to COVID-19; R31.0 Gross hematuria; E03.9 Hypothyroidism, unspecified; E11.22 Type 2 diabetes mellitus with diabetic chronic kidney disease; E11.42 Type 2 diabetes mellitus with diabetic polyneuropathy; E87.5 Hyperkalemia; I12.9 Hypertensive chronic kidney disease with stage 1 through stage 4 chronic kidney disease, or unspecified chronic kidney disease; J44.9 Chronic obstructive pulmonary disease, unspecified; Z51.5 Encounter for palliative care; Z85.51 Personal history of malignant neoplasm of bladder; Z88.8 Allergy status to other drugs, medicaments and biological substances; Z68.20 Body mass index [BMI] 20.0-20.9, adult; E87.6 Hypokalemia
CPT/HCPCS: 36415; 36430; 71045; 74176; 80048; 80053; 80061; 80076; 81001; 82272; 82607; 82948; 83036; 83605; 83690; 83735; 83880; 84100; 84132; 84443; 84484; 85025; 85027; 85610; 85730; 86885; 86900; 86901; 86920; 87040; 87045; 87046; 87081; 87324; 87449; 87635; 89055; 93005; 93308; 94640; 96361; 96374; 97161; 97530; 99285; A7015; C9803; G0378; J0610; J0692; J0744; J1815; J2060; J2270; J2543; J3370; J3490; J7030; P9016; Q9967